=== PATIENT | female | born 1970 | race Caucasian/White ===

== ENCOUNTER 2021-12-16 11:33 | Outpatient (CLI) | payer OTHER, SELFPAY ==
--- NOTE | ~2021-12-16 | XR_ITS ---
XR hand RT min 3V DATE: 12/16/2021 13:49 INDICATION: Bilateral hand pain TECHNIQUE: 3 views COMPARISON: None FINDINGS: There is osteophytic change involving primarily the distal interphalangeal joints, most pro minent at the interphalangeal joint of the first digit. No fracture or dislocation, periosteal reaction or bone destruction, chondrocalcinosis or erosive carson nge. 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
--- NOTE | ~2021-12-16 | XR_ITS ---
XR foot RT min 3V DATE: 12/16/2021 13:49 INDICATION: Bilateral foot pain TECHNIQUE: 4 views COMPARISON: None FINDINGS: Mild osteoarthritis at the first metatarsophalangeal joint and some interphalangeal joints. No erosive change. No fracture or dislocation, periosteal reaction or bone destruction is detected. IMPRESSION: Mild osteoarthritis Reviewed, dictated and finalized at location A. IMPRESSION: Mild osteoarthritis
--- NOTE | ~2021-12-16 | XR_ITS ---
XR foot LT min 3V DATE: 12/16/2021 13:49 INDICATION: Bilateral foot pain TECHNIQUE: 4 views COMPARISON: None FINDINGS: Slight plantar calcaneal enthesopathy. Mild osteophyte is at the first metatarsophalangeal joint No fracture or dislocation, periosteal reaction or bone destruction. IMPRESSION: Slight plantar calcaneal enthesopathy Mild osteoarthrosis at first metatarsophalangeal joint Reviewed, dictated and finalized at location A.
--- NOTE | ~2021-12-16 | XR_ITS ---
XR hand LT min 3V DATE: 12/16/2021 13:49 INDICATION: Bilateral hand pain TECHNIQUE: 3 views COMPARISON: None FINDINGS: There is osteoarthritic change at the interphalangeal joint of the first digit and to a les ser extent the distal interphalangeal joints of the other digits. No fracture, dislocation, periosteal reaction or bone destruction, chondrocalcinosis or erosive galeano e. IMPRESSION: Osteoarthritis involving primarily the distal interphalangeal joints, most prominent at t he interphalangeal joint of the first digit Reviewed, dictated and finalized at location A. IMPRESSION: Osteoarthritis involving primarily the distal interphalangeal joint s, most prominent at the interphalangeal joint of the first digit
== END 2021-12-16 11:34 ==
LOC: MICIMG 11:40
PROVIDERS: PCP Internal Medicine; Visit Provider Internal Medicine
DX: M77.32 Calcaneal spur, left foot (principal); M19.072 Primary osteoarthritis, left ankle and foot; M19.071 Primary osteoarthritis, right ankle and foot; M19.041 Primary osteoarthritis, right hand; M19.042 Primary osteoarthritis, left hand
CPT/HCPCS: 73130; 73630